=== PATIENT | female | born 2000 | race Caucasian/White ===

== ENCOUNTER 2018-09-05 13:03 | Emergency (ER) | payer MEDICAID ==
[2018-09-05 14:19] LABS: URINE BLOOD (Dip) POC Trace-intact (NEGATIVE); URINE GLUCOSE (Dip) POC Negative (NEGATIVE); URINE KETONES (Dip) POC Negative (NEGATIVE); URINE LEUKOCYTE EST (Dip) POC 3+ (NEGATIVE); URINE NITRITE (Dip) POC Negative (NEGATIVE); URINE TOTAL PROTEIN POC Negative (NEGATIVE)
== END 2018-09-05 14:44 | disposition home or self-care (01) ==
LOC: FTE 13:03
DX: R00.2 Palpitations (principal)
CPT/HCPCS: 71045; 81003; 81025; 93005; 99284-25